=== PATIENT | male | born 1960 | race Caucasian/White ===

== ENCOUNTER 2018-06-13 10:06 | Inpatient (IN) | payer MEDICAID, OTHER ==
[~2018-06-13] VITALS: Ht 167.6 cm; Wt 93.5 kg
[~2018-06-13 10:06] MED LIST: AMLO10TA80 PO; ASPI-1159 PO; COR3 PO; DOXA8TAB81 PO; FURO40TA5 PO; LISI-604 PO; SPIR25TA6 PO
[2018-06-13 15:55] LABS: BASOPHILS % 0.7 % (0.0-2.0); EOSINOPHILS % 1.8 % (0.0-5.0); HEMATOCRIT. 46.1 % (42.0-52.0); HEMOGLOBIN. 14.8 g/dL (14.0-18.0); LYMPHOCYTES % 12.6 % (20.0-50.0); MEAN CORPUSCULAR HEMOGLOBIN 26.7 pg (28.0-32.0); MEAN CORPUSCULAR VOLUME 82.9 fL (80.0-94.0); MEAN PLATELET VOLUME 8.8 fl (7.4-10.4); MONOCYTES % 11.1 % (2.0-8.0); NEUTROPHILS % 73.8 % (40.0-76.0); PLATELET 276 x1000/uL (130-400); RED BLOOD CELL COUNT 5.56 mill/uL (4.7-6.1); RED CELL DISTRIBUTION WIDTH 16.5 % (11.6-14.6)
[2018-06-13 16:00] LABS: CHLORIDE 103 mEq/L (98-107)
[2018-06-13] MEDS ORDERED: DILTIAZEM HCL 125 MG in DEXT 5% WATER 100 ML IV ONE (16:00)
[2018-06-13] MEDS ORDERED: DILTIAZEM HCL 5MG/ML 5ML VIAL IV ONE (16:00)
[2018-06-13] MEDS ORDERED: DILTIAZEM HCL 125 MG in DEXT 5% WATER 100 ML IV SCH (16:15)
[2018-06-13] MEDS ORDERED: SODIUM CHLORIDE 0.9% 500 ML IV ONE (16:30)
[2018-06-13] MEDS ORDERED: ACETAMINOPHEN 325MG TABLET PO PRN (17:30)
[2018-06-13] MEDS ORDERED: ONDANSETRON HCL 4MG/2ML INJ IV PRN (17:30)
[2018-06-13] MEDS ORDERED: GUAIFENESIN 200MG/10ML SUGAR FREE UDC PO PRN (17:30)
[2018-06-13] MEDS ORDERED: MAGNESIUM/ALUMINUM HYDROXIDE/SIMETHICONE 30ML UDC PO PRN (17:30)
[2018-06-13] MEDS ORDERED: LORAZEPAM 0.5MG TABLET PO PRN (17:30)
[2018-06-13] MEDS ORDERED: IPRATROPIUM/ALBUTEROL 0.5-3(2.5)MG/3ML NEB INH PRN (17:30)
[2018-06-13] MEDS ORDERED: ENOXAPARIN 40MG/0.4ML SYR SUBCUT SCH (17:30)
[2018-06-13] MEDS ORDERED: DOCUSATE SODIUM 100MG CAPSULE PO PRN (17:30)
[2018-06-13] MEDS ORDERED: NITROGLYCERIN 0.4MG TABLET SL SL PRN (17:30)
[2018-06-13 18:01] LABS: INR 1.3; PARTIAL THROMBOPLASTIN TIME 29.2 sec (23.4-31.0); PROTHROMBIN TIME 12.6 sec (9.1-11.1)
[2018-06-13] MEDS ORDERED: KETOROLAC 15MG/ML VIAL IV PRN (18:30)
[2018-06-13] MEDS: CLONIDINE 0.1MG TABLET PO PRN (18:42)
[2018-06-13 18:43] LABS: *AMPHETAMINES SCREEN URINE NEGATIVE (NEGATIVE); *BARBITURATES SCREEN URINE NEGATIVE (NEGATIVE); *BENZODIAZEPINES SCREEN URINE NEGATIVE (NEGATIVE); *COCAINE SCREEN URINE NEGATIVE (NEGATIVE); CANNABINOID URINE SCREEN NEGATIVE (NEGATIVE); METHADONE URINE SCREEN NEGATIVE (NEGATIVE); OPIATES URINE SCREEN NEGATIVE (NEGATIVE)
[2018-06-13 18:44] LABS: PHENCYCLIDINE URINE SCREEN NEGATIVE (NEGATIVE)
[2018-06-13] MEDS ORDERED: ZOLPIDEM TARTRATE 5MG TABLET PO PRN (21:00)
[2018-06-13 23:51] LABS: CREATINE KINASE MB FRACTION 2.8 ng/mL (0.5-3.6)
[2018-06-14] VITALS (7 sets, daily range): BP systolic 108–165; BP diastolic 67–100
[2018-06-14] MEDS: DILTIAZEM HCL 60MG TABLET PO SCH ×2 (05:32→11:32)
[2018-06-14] MEDS: CLONIDINE 0.1MG TABLET PO PRN (06:25)
[2018-06-14] MEDS ORDERED: IRBE150T27 PO (07:10)
[2018-06-14] MEDS ORDERED: ASPIRIN 325MG EC TABLET PO SCH (09:00)
[2018-06-14] MEDS ORDERED: LISINOPRIL 20MG TABLET PO SCH (09:00)
[2018-06-14] MEDS ORDERED: METOPROLOL TARTRATE 25MG TABLET PO SCH (09:00)
[2018-06-14] MEDS ORDERED: FAMOTIDINE 20MG TABLET PO SCH (09:00)
[2018-06-14 09:41] LABS: CHLORIDE 106 mEq/L (98-107)
[2018-06-14 09:51] LABS: CREATINE KINASE 102 IU/L (39-308)
[2018-06-14] MEDS: ENOXAPARIN 100MG/ML SYR SUBCUT SCH ×2 (11:33)
[2018-06-14] MEDS ORDERED: INFLUENZA VIRUS VACCINE(AFLURIA) 0.5ML SYR IM ONE (12:00)
[2018-06-14] MEDS ORDERED: PNEUMOCOCCAL 23-VAL P-SAC VAC 0.5 ML IM ONE (12:00)
== END 2018-06-14 14:53 | disposition home or self-care (01) | DRG 201 ==
LOC: ER 10:06 → 3WST 16:56 → EDBEDREQ 17:00 → ENRESERV 06-14 03:22
PROVIDERS: ADMIT Internal Medicine; ATTEND Internal Medicine
DX: I48.91 Unspecified atrial fibrillation (principal); N17.0 Acute kidney failure with tubular necrosis; I50.9 Heart failure, unspecified; I11.0 Hypertensive heart disease with heart failure; E83.51 Hypocalcemia; I42.9 Cardiomyopathy, unspecified; Z79.82 Long term (current) use of aspirin; Z79.899 Other long term (current) drug therapy
CPT/HCPCS: 36415; 71045; 80061; 80305; 82550; 82553; 83036; 83880; 84484; 90686; 90732; 93005; 93970; 96374; 99285; J1650; J3490; J7060

== ENCOUNTER 2018-07-06 18:37 | Inpatient (IN) | payer OTHER ==
[~2018-07-06] VITALS: Ht 170.2 cm; Wt 91.6 kg
[~2018-07-06 18:37] MED LIST changes: +IRBE150T27 PO
[2018-07-06] MEDS ORDERED: SODIUM CHLORIDE 0.9% 1,000 ML IV ONE (19:37)
[2018-07-06] MEDS ORDERED: MORPHINE SULFATE 4 MG/ML CPJ (NOT FOR IM USE) IV STA (19:37)
[2018-07-06] MEDS ORDERED: ONDANSETRON HCL 4MG/2ML INJ IV STA (19:37)
[2018-07-06] MEDS ORDERED: HYDRALAZINE 20MG/ML VIAL IV ONE (19:45)
[2018-07-06] MEDS ORDERED: DILTIAZEM HCL 5MG/ML 5ML VIAL IV ONE ×2 (20:00→21:45)
[2018-07-06 20:22] LABS: HEMATOCRIT. 43.5 % (42.0-52.0); HEMOGLOBIN. 14.1 g/dL (14.0-18.0); MEAN CORPUSCULAR HEMOGLOBIN 26.1 pg (28.0-32.0); MEAN CORPUSCULAR VOLUME 80.5 fL (80.0-94.0); MEAN PLATELET VOLUME 8.7 fl (7.4-10.4); PLATELET 424 x1000/uL (130-400); RED BLOOD CELL COUNT 5.41 mill/uL (4.7-6.1); RED CELL DISTRIBUTION WIDTH 16.8 % (11.6-14.6)
[2018-07-06 20:29] LABS: INR 1.4; PROTHROMBIN TIME 14.3 sec (9.1-11.1)
[2018-07-06 20:30] LABS: CLARITY URINE CLEAR (CLEAR); COLOR URINE DARK YELLOW (YELLOW); KETONES URINE 1+ (NEGATIVE); LEUKOCYTE ESTERASE URINE TRACE (NEGATIVE); NITRITE URINE NEGATIVE (NEGATIVE); OCCULT BLOOD URINE NEGATIVE (NEGATIVE); PH URINE 5.5 (4.5-8.0); PROTEIN URINE 2+ (NEGATIVE)
[2018-07-06 20:30] LABS: CHLORIDE 96 mEq/L (98-107)
[2018-07-06] MEDS ORDERED: DILTIAZEM HCL 60MG TABLET PO ONE (20:30)
[2018-07-06 20:51] LABS: PLATELET ESTIMATE SLIGHTLY INCREASED
[2018-07-06] MEDS ORDERED: POTASSIUM CHLORIDE 20MEQ TABLET SR PO ONE (21:00)
[2018-07-06] MEDS ORDERED: ENOXAPARIN 80MG/0.8ML SYR SUBCUT ONE (22:00)
[2018-07-06] MEDS ORDERED: SODIUM CHLORIDE 0.9% 1000ML BAG (SEPSIS BOLUS) IV ONE (22:00)
[2018-07-06] MEDS ORDERED: LEVOFLOXACIN 750MG PREMIX 150 ML IV ONE (22:00)
[2018-07-06] MEDS ORDERED: ASPIRIN 325MG EC TABLET PO ONE (22:00)
[2018-07-06] MEDS ORDERED: DILTIAZEM HCL 5MG/ML 5ML VIAL IV NR (23:30)
[2018-07-07] VITALS (71 sets, daily range): BP systolic 55–188; BP diastolic 18–115
[2018-07-07] MEDS: DILTIAZEM HCL 125MG in DEXTROSE 5% WATER 125ML IV PRN ×3 (00:13→19:02)
[2018-07-07] MEDS ORDERED: DILTIAZEM HCL 30MG TABLET PO PRN (06:00)
[2018-07-07] MEDS ORDERED: CLONIDINE 0.1MG TABLET PO PRN (06:00)
[2018-07-07] MEDS ORDERED: HYDROCODONE/ACETAMINOPHEN 5/325MG TABLET PO PRN (06:00)
[2018-07-07] MEDS ORDERED: ONDANSETRON HCL 4MG/2ML INJ IV PRN (06:00)
[2018-07-07] MEDS ORDERED: GUAIFENESIN 200MG/10ML SUGAR FREE UDC PO PRN (06:00)
[2018-07-07] MEDS ORDERED: ACETAMINOPHEN 325MG TABLET PO PRN (06:00)
[2018-07-07] MEDS ORDERED: DOCUSATE SODIUM 100MG CAPSULE PO PRN (06:00)
[2018-07-07] MEDS ORDERED: MAGNESIUM/ALUMINUM HYDROXIDE/SIMETHICONE 30ML UDC PO PRN (06:00)
[2018-07-07 07:48] LABS: CREATINE KINASE MB FRACTION 2.1 ng/mL (0.5-3.6)
[2018-07-07] MEDS ORDERED: METOPROLOL TARTRATE 25MG TABLET PO SCH (09:00)
[2018-07-07] MEDS ORDERED: DIGOXIN 500MCG/2ML AMP IV NR (11:45)
[2018-07-07] MEDS ORDERED: DILTIAZEM HCL 30MG TABLET PO SCH (12:00)
[2018-07-07 12:18] LABS: HEMATOCRIT. 41.3 % (42.0-52.0); MEAN CORPUSCULAR HEMOGLOBIN 25.9 pg (28.0-32.0); MEAN CORPUSCULAR VOLUME 82.3 fL (80.0-94.0); PLATELET 398 x1000/uL (130-400); RED BLOOD CELL COUNT 5.02 mill/uL (4.7-6.1); RED CELL DISTRIBUTION WIDTH 17.2 % (11.6-14.6)
[2018-07-07 12:21] LABS: CHLORIDE 102 mEq/L (98-107)
[2018-07-07] MEDS: POTASSIUM CHLORIDE 20MEQ TABLET SR PO SCH (12:27)
[2018-07-07] MEDS: FUROSEMIDE 40MG TABLET PO SCH (12:28)
[2018-07-07] MEDS: DILTIAZEM HCL 60MG TABLET PO SCH ×3 (12:28→23:51)
[2018-07-07] MEDS: ENOXAPARIN 100MG/ML SYR SUBCUT SCH (12:29)
[2018-07-07 13:59] LABS: PLATELET ESTIMATE NORMAL
[2018-07-07 15:06] LABS: *AMPHETAMINES SCREEN URINE NEGATIVE (NEGATIVE); *BARBITURATES SCREEN URINE NEGATIVE (NEGATIVE); *BENZODIAZEPINES SCREEN URINE NEGATIVE (NEGATIVE); *COCAINE SCREEN URINE NEGATIVE (NEGATIVE); METHADONE URINE SCREEN NEGATIVE (NEGATIVE); OPIATES URINE SCREEN PRESUMTIVE POSITIVE (NEGATIVE)
[2018-07-07 15:08] LABS: CANNABINOID URINE SCREEN NEGATIVE (NEGATIVE); PHENCYCLIDINE URINE SCREEN NEGATIVE (NEGATIVE)
[2018-07-07] MEDS ORDERED: DIGOXIN 500MCG/2ML AMP IV PRN (16:00)
[2018-07-07 16:31] LABS: CREATINE KINASE MB FRACTION 1.7 ng/mL (0.5-3.6)
[2018-07-07] MEDS: CARVEDILOL 3.125 MG TABLET PO SCH (20:48)
[2018-07-07] MEDS ORDERED: ENOXAPARIN 40MG/0.4ML SYR SUBCUT SCH (22:00)
[2018-07-07] MEDS ORDERED: LEVOFLOXACIN 500MG PREMIX 100 ML IV SCH (22:30)
[2018-07-08] VITALS (62 sets, daily range): BP systolic 111–162; BP diastolic 66–134
[2018-07-08] MEDS: ENOXAPARIN 100MG/ML SYR SUBCUT SCH ×2 (00:38→13:11)
[2018-07-08 06:17] LABS: HEMATOCRIT. 43.4 % (42.0-52.0); HEMOGLOBIN. 13.8 g/dL (14.0-18.0); MEAN CORPUSCULAR HEMOGLOBIN 25.7 pg (28.0-32.0); MEAN CORPUSCULAR VOLUME 81.1 fL (80.0-94.0); MEAN PLATELET VOLUME 8.8 fl (7.4-10.4); PLATELET 457 x1000/uL (130-400); RED BLOOD CELL COUNT 5.36 mill/uL (4.7-6.1); RED CELL DISTRIBUTION WIDTH 16.8 % (11.6-14.6)
[2018-07-08 06:38] LABS: CHLORIDE 99 mEq/L (98-107)
[2018-07-08] MEDS: DILTIAZEM HCL 60MG TABLET PO SCH (06:41)
[2018-07-08 07:04] LABS: LDL CHOLESTEROL 78 mg/dL (5-100)
[2018-07-08 07:06] LABS: CREATINE KINASE MB FRACTION < 1.0 ng/mL (0.5-3.6)
[2018-07-08 07:07] LABS: HDL CHOLESTEROL 33 mg/dL (40-59); T4 FREE 1.39 ng/dL (0.76-1.46)
[2018-07-08] MEDS: DILTIAZEM HCL 125MG in DEXTROSE 5% WATER 125ML IV PRN (07:07)
[2018-07-08] MEDS: SPIRONOLACTONE 25MG TABLET PO SCH (08:24)
[2018-07-08] MEDS: POTASSIUM CHLORIDE 20MEQ TABLET SR PO SCH (08:25)
[2018-07-08] MEDS: CARVEDILOL 3.125 MG TABLET PO SCH ×2 (08:25→21:25)
[2018-07-08] MEDS: FUROSEMIDE 40MG TABLET PO SCH (08:25)
[2018-07-08 09:56] LABS: PLATELET ESTIMATE INCREASED
[2018-07-08] MEDS ORDERED: POTASSIUM CHLORIDE 20MEQ/PACKET PO NR (12:45)
[2018-07-08] MEDS ORDERED: MAGNESIUM 1 G PREMIX 100 ML IV SCH (13:00)
[2018-07-08] MEDS ORDERED: POTASSIUM CHLORIDE 20MEQ TABLET SR PO NR (13:00)
[2018-07-08] MEDS: DILTIAZEM HCL 90MG TABLET PO SCH ×2 (13:11→18:31)
[2018-07-08] MEDS: LOSARTAN POTASSIUM 25 MG TABLET PO SCH (13:11)
[2018-07-08] MEDS: FLUTICASONE PROPIONATE 50MCG/SPRAY BOTTLE BOTHNSTRLS SCH ×2 (15:16→21:25)
[2018-07-08] MEDS: LEVOFLOXACIN 750MG PREMIX 150 ML IV SCH (18:32)
[2018-07-09] VITALS (30 sets, daily range): BP systolic 110–154; BP diastolic 52–102
[2018-07-09] MEDS: DILTIAZEM HCL 90MG TABLET PO SCH ×5 (00:04→23:46)
[2018-07-09] MEDS: ENOXAPARIN 100MG/ML SYR SUBCUT SCH ×3 (00:05→23:47)
[2018-07-09 06:34] LABS: HEMATOCRIT. 41.8 % (42.0-52.0); HEMOGLOBIN. 13.6 g/dL (14.0-18.0); MEAN CORPUSCULAR HEMOGLOBIN 26.1 pg (28.0-32.0); MEAN CORPUSCULAR VOLUME 80.5 fL (80.0-94.0); MEAN PLATELET VOLUME 8.6 fl (7.4-10.4); PLATELET 459 x1000/uL (130-400); RED BLOOD CELL COUNT 5.19 mill/uL (4.7-6.1); RED CELL DISTRIBUTION WIDTH 17.4 % (11.6-14.6)
[2018-07-09 06:41] LABS: CHLORIDE 101 mEq/L (98-107)
[2018-07-09] MEDS: LOSARTAN POTASSIUM 25 MG TABLET PO SCH ×2 (08:02→20:56)
[2018-07-09] MEDS: POTASSIUM CHLORIDE 20MEQ TABLET SR PO SCH (08:02)
[2018-07-09] MEDS: CARVEDILOL 3.125 MG TABLET PO SCH ×2 (08:02→20:56)
[2018-07-09] MEDS: FUROSEMIDE 40MG TABLET PO SCH (08:02)
[2018-07-09] MEDS: FLUTICASONE PROPIONATE 50MCG/SPRAY BOTTLE BOTHNSTRLS SCH ×2 (08:02→20:56)
[2018-07-09] MEDS: SPIRONOLACTONE 25MG TABLET PO SCH (08:02)
[2018-07-09 08:07] LABS: PLATELET ESTIMATE INCREASED
[2018-07-09] MEDS: LEVOFLOXACIN 750MG PREMIX 150 ML IV SCH (17:06)
[2018-07-10] VITALS (24 sets, daily range): BP systolic 116–161; BP diastolic 55–101
[2018-07-10 05:49] LABS: HEMOGLOBIN. 13.5 g/dL (14.0-18.0); MEAN CORPUSCULAR HEMOGLOBIN 25.8 pg (28.0-32.0); MEAN CORPUSCULAR VOLUME 80.4 fL (80.0-94.0); MEAN PLATELET VOLUME 8.3 fl (7.4-10.4); PLATELET 478 x1000/uL (130-400); RED BLOOD CELL COUNT 5.22 mill/uL (4.7-6.1); RED CELL DISTRIBUTION WIDTH 17.5 % (11.6-14.6)
[2018-07-10 05:55] LABS: CHLORIDE 101 mEq/L (98-107)
[2018-07-10] MEDS: DILTIAZEM HCL 90MG TABLET PO SCH ×2 (06:05→11:25)
[2018-07-10 07:24] LABS: PLATELET ESTIMATE INCREASED
[2018-07-10] MEDS: FUROSEMIDE 40MG TABLET PO SCH (08:12)
[2018-07-10] MEDS: FLUTICASONE PROPIONATE 50MCG/SPRAY BOTTLE BOTHNSTRLS SCH (08:12)
[2018-07-10] MEDS: CARVEDILOL 3.125 MG TABLET PO SCH (08:12)
[2018-07-10] MEDS: POTASSIUM CHLORIDE 20MEQ TABLET SR PO SCH (08:12)
[2018-07-10] MEDS: LOSARTAN POTASSIUM 25 MG TABLET PO SCH (08:12)
[2018-07-10] MEDS: SPIRONOLACTONE 25MG TABLET PO SCH (08:13)
[2018-07-10] MEDS ORDERED: RIVAROXABAN 15 MG TABLET PO SCH (12:00)
[2018-07-31] MEDS ORDERED: RIVAROXABAN 20 MG TABLET PO SCH (18:20)
== END 2018-07-10 16:55 | disposition home or self-care (01) | DRG 139 ==
LOC: ER 18:55 → CVICU 21:29 → EDBEDREQSVC 23:36 → EDBEDREQTM 23:36 → ENRESERV 07-07 04:01 → SUPCPDRO 07-07 05:48
PROVIDERS: ADMIT Hospitalist; ATTEND Hospitalist
DX: J18.9 Pneumonia, unspecified organism (principal); I42.9 Cardiomyopathy, unspecified; E87.8 Other disorders of electrolyte and fluid balance, not elsewhere classified; I82.411 Acute embolism and thrombosis of right femoral vein; E87.1 Hypo-osmolality and hyponatremia; E83.51 Hypocalcemia; I11.0 Hypertensive heart disease with heart failure; I50.9 Heart failure, unspecified; I48.91 Unspecified atrial fibrillation; I82.431 Acute embolism and thrombosis of right popliteal vein; N40.0 Benign prostatic hyperplasia without lower urinary tract symptoms; E03.9 Hypothyroidism, unspecified; E78.00 Pure hypercholesterolemia, unspecified; E87.6 Hypokalemia; R10.9 Unspecified abdominal pain
CPT/HCPCS: 36415; 71045; 74176; 78580; 80048; 80061; 80305; 82550; 82553; 83605; 83735; 83880; 84439; 84443; 84484; 85379; 93005; 93306; 93970; 96361; 96374; 96375; 99291; J1160; J1650; J1956; J2270; J2405; J3475; J3490; J7030; J7040; J7050; J7060

== ENCOUNTER 2018-08-11 16:44 | Inpatient (IN) | payer OTHER ==
[~2018-08-11] VITALS: Ht 167.6 cm; Wt 83.9 kg
[~2018-08-11 16:44] MED LIST changes: -AMLO10TA80 PO; -ASPI-1159 PO; -DOXA8TAB81 PO; -IRBE150T27 PO; -LISI-604 PO
[2018-08-11 17:51] LABS: BASOPHILS % 0.7 % (0.0-2.0); EOSINOPHILS % 5.1 % (0.0-5.0); HEMATOCRIT. 47.3 % (42.0-52.0); HEMOGLOBIN. 15.5 g/dL (14.0-18.0); LYMPHOCYTES % 17.4 % (20.0-50.0); MEAN CORPUSCULAR HEMOGLOBIN 26.1 pg (28.0-32.0); MEAN CORPUSCULAR VOLUME 79.7 fL (80.0-94.0); MEAN PLATELET VOLUME 8.7 fl (7.4-10.4); MONOCYTES % 11.5 % (2.0-8.0); NEUTROPHILS % 65.3 % (40.0-76.0); PLATELET 284 x1000/uL (130-400); RED BLOOD CELL COUNT 5.94 mill/uL (4.7-6.1); RED CELL DISTRIBUTION WIDTH 19.3 % (11.6-14.6)
[2018-08-11] MEDS ORDERED: DILTIAZEM HCL 5MG/ML 5ML VIAL IV ONE ×2 (18:00→18:45)
[2018-08-11 18:01] LABS: CHLORIDE 103 mEq/L (98-107)
[2018-08-11 18:06] LABS: ETHANOL BLOOD < 10 mg/dL
[2018-08-11 18:39] LABS: INR 1.2; PARTIAL THROMBOPLASTIN TIME 27.3 sec (23.4-31.0); PROTHROMBIN TIME 12.4 sec (9.6-11.0)
[2018-08-11 18:44] LABS: T4 FREE 1.06 ng/dL (0.76-1.46)
[2018-08-11] MEDS ORDERED: ENOXAPARIN 80MG/0.8ML SYR SUBCUT ONE (18:45)
[2018-08-11] MEDS ORDERED: DILTIAZEM HCL 125 MG in DEXT 5% WATER 100 ML IV ONE ×2 (19:45→20:01)
[2018-08-12] VITALS (58 sets, daily range): BP systolic 88–183; BP diastolic 31–129
[2018-08-12] MEDS ORDERED: DILTIAZEM HCL 125 MG in DEXT 5% WATER 100 ML IV SCH ×2 (02:00→02:15)
[2018-08-12] MEDS ORDERED: ACETAMINOPHEN 325MG TABLET PO PRN ×2 (02:45→08:15)
[2018-08-12] MEDS ORDERED: HYDROCODONE/ACETAMINOPHEN 5/325MG TABLET PO PRN (02:45)
[2018-08-12 06:04] LABS: BASOPHILS % 1.2 % (0.0-2.0); EOSINOPHILS % 4.8 % (0.0-5.0); HEMATOCRIT. 46.6 % (42.0-52.0); HEMOGLOBIN. 15.1 g/dL (14.0-18.0); LYMPHOCYTES % 19.6 % (20.0-50.0); MEAN CORPUSCULAR VOLUME 80.2 fL (80.0-94.0); MEAN PLATELET VOLUME 8.6 fl (7.4-10.4); MONOCYTES % 12.7 % (2.0-8.0); NEUTROPHILS % 61.7 % (40.0-76.0); PLATELET 279 x1000/uL (130-400); RED BLOOD CELL COUNT 5.81 mill/uL (4.7-6.1); RED CELL DISTRIBUTION WIDTH 19.5 % (11.6-14.6)
[2018-08-12 06:29] LABS: CHLORIDE 104 mEq/L (98-107)
[2018-08-12] MEDS ORDERED: ONDANSETRON HCL 4MG/2ML INJ IV PRN (08:15)
[2018-08-12] MEDS ORDERED: APIXABAN 5 MG TABLET PO SCH ×2 (09:00)
[2018-08-12] MEDS: LISINOPRIL 5MG TABLET PO SCH (09:06)
[2018-08-12] MEDS: FUROSEMIDE 40MG/4ML VIAL IVP SCH ×2 (09:06→20:12)
[2018-08-12] MEDS: CARVEDILOL 3.125 MG TABLET PO SCH ×2 (09:06→20:12)
[2018-08-12] MEDS: APIXABAN 5 MG TABLET PO SCH ×2 (09:07→17:00)
[2018-08-12] MEDS: ASPIRIN 325MG EC TABLET PO SCH (09:07)
[2018-08-12] MEDS: DILTIAZEM HCL 125 MG in DEXT 5% WATER 100 ML IV SCH ×2 (09:46→21:47)
[2018-08-12] MEDS ORDERED: SPIR25TA6 MT (21:10)
[2018-08-12] MEDS ORDERED: RIVA20TA MT (21:10)
[2018-08-12] MEDS ORDERED: LOSA25TA12 MT (21:10)
[2018-08-12] MEDS ORDERED: COR6 MT (21:10)
[2018-08-13] VITALS (72 sets, daily range): BP systolic 84–155; BP diastolic 43–109
[2018-08-13 06:01] LABS: EOSINOPHILS % 5.4 % (0.0-5.0); HEMATOCRIT. 46.5 % (42.0-52.0); LYMPHOCYTES % 16.7 % (20.0-50.0); MEAN CORPUSCULAR HEMOGLOBIN 26.1 pg (28.0-32.0); MEAN CORPUSCULAR VOLUME 80.7 fL (80.0-94.0); MEAN PLATELET VOLUME 8.4 fl (7.4-10.4); MONOCYTES % 13.2 % (2.0-8.0); NEUTROPHILS % 63.7 % (40.0-76.0); PLATELET 271 x1000/uL (130-400); RED BLOOD CELL COUNT 5.76 mill/uL (4.7-6.1); RED CELL DISTRIBUTION WIDTH 19.4 % (11.6-14.6)
[2018-08-13] MEDS ORDERED: DILTIAZEM HCL 125 MG in DEXT 5% WATER 100 ML IV SCH (07:24)
[2018-08-13] MEDS: LISINOPRIL 5MG TABLET PO SCH (08:20)
[2018-08-13] MEDS: FUROSEMIDE 40MG/4ML VIAL IVP SCH ×2 (08:21→21:17)
[2018-08-13] MEDS: APIXABAN 5 MG TABLET PO SCH ×2 (08:21→08:55)
[2018-08-13] MEDS: CARVEDILOL 6.25 MG TABLET PO SCH ×2 (08:21→21:17)
[2018-08-13] MEDS: ASPIRIN 325MG EC TABLET PO SCH (08:21)
[2018-08-13] MEDS ORDERED: ENOXAPARIN 60MG/0.6ML SYR SUBCUT NR (14:00)
[2018-08-13] MEDS: DILTIAZEM HCL 60MG TABLET PO SCH ×2 (14:00→21:18)
[2018-08-14] VITALS (29 sets, daily range): BP systolic 108–197; BP diastolic 52–152
[2018-08-14 05:51] LABS: BASOPHILS % 0.9 % (0.0-2.0); EOSINOPHILS % 7.6 % (0.0-5.0); HEMATOCRIT. 50.3 % (42.0-52.0); HEMOGLOBIN. 16.3 g/dL (14.0-18.0); LYMPHOCYTES % 16.2 % (20.0-50.0); MEAN CORPUSCULAR VOLUME 80.5 fL (80.0-94.0); MEAN PLATELET VOLUME 8.7 fl (7.4-10.4); MONOCYTES % 12.1 % (2.0-8.0); NEUTROPHILS % 63.2 % (40.0-76.0); PLATELET 287 x1000/uL (130-400); RED BLOOD CELL COUNT 6.25 mill/uL (4.7-6.1); RED CELL DISTRIBUTION WIDTH 20.1 % (11.6-14.6)
[2018-08-14] MEDS: DILTIAZEM HCL 60MG TABLET PO SCH ×3 (06:08→21:00)
[2018-08-14] MEDS: FUROSEMIDE 40MG/4ML VIAL IVP SCH ×2 (07:38→20:58)
[2018-08-14] MEDS: ASPIRIN 325MG EC TABLET PO SCH (07:38)
[2018-08-14] MEDS: CARVEDILOL 6.25 MG TABLET PO SCH ×2 (07:39→20:57)
[2018-08-14] MEDS ORDERED: MIDAZOLAM HCL 2 MG/2 ML VIAL ONE (09:44)
[2018-08-14] MEDS ORDERED: LIDOCAINE HCL 1% 20ML VIAL (Pyxis) INJ ONE (09:45)
[2018-08-14] MEDS ORDERED: IODIXANOL 320MG/ML 100 ML BOTTLE IV ONE (09:45)
[2018-08-14] MEDS ORDERED: FENTANYL CITRATE/PF 50MCG/ML 2ML VIAL ONE (09:45)
[2018-08-14] MEDS ORDERED: ONDANSETRON HCL 4MG/2ML INJ IV PRN (11:15)
[2018-08-14] MEDS ORDERED: ATROPINE SULFATE 1MG/10ML SYR IV PRN (11:15)
[2018-08-14] MEDS ORDERED: ACETAMINOPHEN 325MG TABLET PO PRN (11:15)
[2018-08-14] MEDS: LISINOPRIL 5MG TABLET PO SCH (12:33)
[2018-08-15] VITALS (12 sets, daily range): BP systolic 103–123; BP diastolic 18–89
[2018-08-15] MEDS: DILTIAZEM HCL 60MG TABLET PO SCH (05:11)
[2018-08-15 06:27] LABS: BASOPHILS % 0.8 % (0.0-2.0); EOSINOPHILS % 6.6 % (0.0-5.0); HEMATOCRIT. 50.7 % (42.0-52.0); HEMOGLOBIN. 16.4 g/dL (14.0-18.0); LYMPHOCYTES % 19.4 % (20.0-50.0); MEAN CORPUSCULAR HEMOGLOBIN 26.1 pg (28.0-32.0); MEAN PLATELET VOLUME 8.7 fl (7.4-10.4); MONOCYTES % 12.1 % (2.0-8.0); NEUTROPHILS % 61.1 % (40.0-76.0); PLATELET 287 x1000/uL (130-400); RED BLOOD CELL COUNT 6.26 mill/uL (4.7-6.1); RED CELL DISTRIBUTION WIDTH 19.9 % (11.6-14.6)
[2018-08-15] MEDS: ASPIRIN 325MG EC TABLET PO SCH (08:07)
[2018-08-15] MEDS: CARVEDILOL 6.25 MG TABLET PO SCH (08:08)
[2018-08-15] MEDS: LISINOPRIL 5MG TABLET PO SCH (08:09)
[2018-08-15] MEDS: FUROSEMIDE 40MG/4ML VIAL IVP SCH ×2 (08:09→20:50)
[2018-08-15] MEDS ORDERED: DIGOXIN 500MCG/2ML AMP IV ONE (11:45)
[2018-08-15] MEDS: DILTIAZEM HCL 90MG TABLET PO SCH ×2 (13:57→22:32)
[2018-08-15] MEDS ORDERED: DIGOXIN 500MCG/2ML AMP IV SCH ×2 (14:00→18:00)
[2018-08-15] MEDS: CARVEDILOL 12.5MG TABLET PO SCH (20:50)
[2018-08-16] VITALS (8 sets, daily range): BP systolic 101–115; BP diastolic 50–79
[2018-08-16 06:24] LABS: BASOPHILS % 0.6 % (0.0-2.0); EOSINOPHILS % 4.2 % (0.0-5.0); HEMATOCRIT. 48.2 % (42.0-52.0); HEMOGLOBIN. 15.9 g/dL (14.0-18.0); LYMPHOCYTES % 11.5 % (20.0-50.0); MEAN CORPUSCULAR HEMOGLOBIN 26.5 pg (28.0-32.0); MEAN CORPUSCULAR VOLUME 80.5 fL (80.0-94.0); MEAN PLATELET VOLUME 8.9 fl (7.4-10.4); MONOCYTES % 10.1 % (2.0-8.0); NEUTROPHILS % 73.6 % (40.0-76.0); PLATELET 261 x1000/uL (130-400); RED BLOOD CELL COUNT 5.99 mill/uL (4.7-6.1); RED CELL DISTRIBUTION WIDTH 19.5 % (11.6-14.6)
[2018-08-16] MEDS: DILTIAZEM HCL 90MG TABLET PO SCH ×2 (06:44→14:53)
[2018-08-16 06:46] LABS: CHLORIDE 98 mEq/L (98-107)
[2018-08-16] MEDS: FUROSEMIDE 40MG/4ML VIAL IVP SCH (08:41)
[2018-08-16] MEDS: LISINOPRIL 5MG TABLET PO SCH (08:42)
[2018-08-16] MEDS: ASPIRIN 325MG EC TABLET PO SCH (08:42)
[2018-08-16] MEDS: CARVEDILOL 12.5MG TABLET PO SCH (08:42)
[2018-08-16] MEDS ORDERED: DIGOXIN 125MCG TABLET PO SCH (18:00)
== END 2018-08-16 14:55 | disposition home or self-care (01) | DRG 192 ==
LOC: ER 16:44 → CANRESERV 22:32 → ENRESERV 22:32 → EDBEDREQSVC 22:47 → CVICU 22:51 → ENRESERV 08-12 00:09 → 3WST 08-13 17:50
PROVIDERS: ADMIT Internal Medicine; ATTEND Internal Medicine
PROC: 4A023N8 Measurement of Cardiac Sampling and Pressure, Bilateral, Percutaneous Approach (ICD-10-PCS; principal; 2018-08-14)
PROC: B2111ZZ Fluoroscopy of Multiple Coronary Arteries using Low Osmolar Contrast (ICD-10-PCS; 2018-08-14)
PROC: B2151ZZ Fluoroscopy of Left Heart using Low Osmolar Contrast (ICD-10-PCS; 2018-08-14)
DX: I48.91 Unspecified atrial fibrillation (principal); I50.23 Acute on chronic systolic (congestive) heart failure; I42.0 Dilated cardiomyopathy; E44.1 Mild protein-calorie malnutrition; I25.10 Atherosclerotic heart disease of native coronary artery without angina pectoris; I11.0 Hypertensive heart disease with heart failure; I25.5 Ischemic cardiomyopathy; E66.9 Obesity, unspecified; E03.9 Hypothyroidism, unspecified; E78.5 Hyperlipidemia, unspecified; I25.2 Old myocardial infarction; Z79.899 Other long term (current) drug therapy; Z86.718 Personal history of other venous thrombosis and embolism; Z68.29 Body mass index [BMI] 29.0-29.9, adult; Z71.3 Dietary counseling and surveillance
CPT/HCPCS: 36415; 71045; 80048; 80320; 83735; 83880; 84439; 84443; 84484; 93005; 93306; 93460; 96372; 96374; 99291; C1760; C1769; C1887; C1893; J1160; J1644; J1650; J1940; J2250; J3010; J3490; J7060; Q9967; G0480

== ENCOUNTER 2019-02-20 10:04 | Inpatient (IN) | payer OTHER, MEDICAID ==
[~2019-02-20] VITALS: Ht 167.6 cm; Wt 88.0 kg
[~2019-02-20 10:04] MED LIST changes: -COR3 PO; +COR6 MT; +LOSA25TA26 MT; +RIVA20TA MT; +SPIR25TA6 MT; -SPIR25TA6 PO
[2019-02-20 11:52] LABS: BASOPHILS % 0.8 % (0.0-2.0); EOSINOPHILS % 4.6 % (0.0-5.0); HEMATOCRIT. 47.8 % (42.0-52.0); HEMOGLOBIN. 15.7 g/dL (14.0-18.0); LYMPHOCYTES % 9.2 % (20.0-50.0); MEAN CORPUSCULAR HEMOGLOBIN 26.8 pg (28.0-32.0); MEAN CORPUSCULAR VOLUME 81.8 fL (80.0-94.0); MEAN PLATELET VOLUME 8.8 fl (7.4-10.4); MONOCYTES % 10.2 % (2.0-8.0); NEUTROPHILS % 75.2 % (40.0-76.0); PLATELET 246 x1000/uL (130-400); RED BLOOD CELL COUNT 5.85 mill/uL (4.7-6.1); RED CELL DISTRIBUTION WIDTH 17.3 % (11.6-14.6)
[2019-02-20 11:57] LABS: CHLORIDE 100 mEq/L (98-107)
[2019-02-20] MEDS ORDERED: ACETAMINOPHEN 650MG/20.3ML UDC PO ONE (12:30)
[2019-02-20] MEDS ORDERED: ACETAMINOPHEN 325MG TABLET ONE (12:35)
[2019-02-20] MEDS ORDERED: IOHEXOL-350 100 ML BOTTLE ONE (14:09)
[2019-02-20] MEDS ORDERED: GUAIFENESIN 200MG/10ML SUGAR FREE UDC PO PRN (19:00)
[2019-02-20] MEDS ORDERED: MAGNESIUM/ALUMINUM HYDROXIDE/SIMETHICONE 30ML UDC PO PRN (19:00)
[2019-02-20] MEDS ORDERED: NA PHOS,M-B/NA PHOS,DI-BA ENEMA 118ML PR PRN (19:00)
[2019-02-20] MEDS ORDERED: ZOLPIDEM TARTRATE 5MG TABLET PO PRN (19:00)
[2019-02-20] MEDS ORDERED: LORAZEPAM 0.5MG TABLET PO PRN (19:00)
[2019-02-20] MEDS ORDERED: TRAMADOL 50MG TABLET PO PRN (19:00)
[2019-02-20] MEDS ORDERED: ACETAMINOPHEN 325MG TABLET PO PRN (19:00)
[2019-02-20] MEDS ORDERED: IPRATROPIUM/ALBUTEROL 0.5-3(2.5)MG/3ML NEB NEB PRN (19:00)
[2019-02-20] MEDS ORDERED: DOCUSATE SODIUM 100MG CAPSULE PO PRN (19:00)
[2019-02-20] MEDS ORDERED: NITROGLYCERIN 0.4MG TABLET SL SL PRN (19:00)
[2019-02-20] MEDS ORDERED: ONDANSETRON HCL 4MG/2ML INJ IV PRN (19:00)
[2019-02-20] MEDS ORDERED: CARVEDILOL 6.25 MG TABLET PO NR (19:15)
[2019-02-20] MEDS ORDERED: ASPIRIN 325MG EC TABLET PO NR (19:15)
[2019-02-20] MEDS ORDERED: DIGOXIN 125MCG TABLET PO NR (19:15)
[2019-02-20] MEDS: RIVAROXABAN 20 MG TABLET PO NR ×2 (19:57→20:00)
[2019-02-20 22:30] VITALS: BP 193/126
[2019-02-20] MEDS ORDERED: LOSARTAN POTASSIUM 50 MG TABLET PO NR (22:30)
[2019-02-20 23:00] VITALS: BP 193/126
[2019-02-20 23:30] VITALS: BP 181/134
[2019-02-20] MEDS: SPIRONOLACTONE 25MG TABLET PO SCH (23:31)
[2019-02-20] MEDS: FUROSEMIDE 20MG TABLET PO SCH (23:31)
[2019-02-20] MEDS: FAMOTIDINE 20MG TABLET PO SCH (23:32)
[2019-02-20] MEDS: CLONIDINE 0.1MG TABLET PO PRN (23:32)
[2019-02-21 00:31] LABS: CREATINE KINASE 76 IU/L (39-308)
[2019-02-21 00:32] LABS: CREATINE KINASE MB FRACTION 1.5 ng/mL (0.5-3.6)
[2019-02-21] MEDS ORDERED: DIGO125T20 PO (01:14)
[2019-02-21 02:00] VITALS: BP 166/123
[2019-02-21 04:00] VITALS: BP 151/111
[2019-02-21 05:19] LABS: CHLORIDE 103 mEq/L (98-107)
[2019-02-21 05:28] LABS: LDL CHOLESTEROL 101 mg/dL (5-100)
[2019-02-21 05:29] LABS: CREATINE KINASE 71 IU/L (39-308); CREATINE KINASE MB FRACTION 1.1 ng/mL (0.5-3.6); HDL CHOLESTEROL 33 mg/dL (40-59)
[2019-02-21] MEDS: CARVEDILOL 12.5MG TABLET PO SCH ×2 (05:31→17:33)
[2019-02-21] MEDS: CLONIDINE 0.1MG TABLET PO PRN ×2 (05:32→23:40)
[2019-02-21 08:00] VITALS: BP 166/106
[2019-02-21] MEDS ORDERED: POTASSIUM CHLORIDE 20MEQ TABLET SR PO NR (08:30)
[2019-02-21] MEDS: FUROSEMIDE 20MG TABLET PO SCH ×2 (09:28→17:33)
[2019-02-21] MEDS: SPIRONOLACTONE 25MG TABLET PO SCH ×2 (09:29→21:36)
[2019-02-21] MEDS: ASPIRIN 325MG EC TABLET PO SCH (09:30)
[2019-02-21] MEDS: FAMOTIDINE 20MG TABLET PO SCH ×2 (09:30→21:36)
[2019-02-21] MEDS: LOSARTAN POTASSIUM 100 MG TABLET PO SCH (09:30)
[2019-02-21] MEDS: AMLODIPINE 10MG TABLET PO SCH (09:30)
[2019-02-21 12:00] VITALS: BP 140/88
[2019-02-21 16:00] VITALS: BP 144/88
[2019-02-21] MEDS ORDERED: RIVAROXABAN 20 MG TABLET PO SCH (17:00)
[2019-02-21] MEDS ORDERED: DIGOXIN 125MCG TABLET PO SCH (18:00)
[2019-02-21 20:00] VITALS: BP 157/95
[2019-02-22] VITALS: BP 162/117
[2019-02-22 04:00] VITALS: BP 180/111
[2019-02-22] MEDS: CLONIDINE 0.1MG TABLET PO PRN (05:46)
[2019-02-22] MEDS: CARVEDILOL 12.5MG TABLET PO SCH (05:46)
[2019-02-22 08:00] VITALS: BP 162/114
[2019-02-22] MEDS: FUROSEMIDE 20MG TABLET PO SCH (08:33)
[2019-02-22] MEDS: FAMOTIDINE 20MG TABLET PO SCH (08:33)
[2019-02-22] MEDS: AMLODIPINE 10MG TABLET PO SCH (08:33)
[2019-02-22] MEDS: ASPIRIN 325MG EC TABLET PO SCH (08:33)
[2019-02-22] MEDS: SPIRONOLACTONE 25MG TABLET PO SCH (08:33)
[2019-02-22] MEDS: LOSARTAN POTASSIUM 100 MG TABLET PO SCH (08:33)
[2019-02-22 10:09] VITALS: BP_SYST 134; BP_SYST 162; BP_DIAS 114; BP_DIAS 77
[2019-02-22 10:44] VITALS: BP 134/77
== END 2019-02-22 11:20 | disposition home or self-care (01) | DRG 194 ==
LOC: ER 10:04 → 6WST 18:27 → EDBEDREQ 18:28 → SUPCPDRO 20:41 → ENRESERV 20:53
PROVIDERS: ADMIT Internal Medicine; ATTEND Internal Medicine
DX: I11.0 Hypertensive heart disease with heart failure (principal); I48.91 Unspecified atrial fibrillation; I50.40 Unspecified combined systolic (congestive) and diastolic (congestive) heart failure; Z79.899 Other long term (current) drug therapy
CPT/HCPCS: 36415; 70496; 70551; 71045; 80061; 82550; 82553; 83036; 83735; 83880; 84484; 93005; 93306; 93970; 99285; Q9967

== ENCOUNTER 2019-04-20 17:48 | Emergency (ER) | payer OTHER, MEDICAID ==
[~2019-04-20] VITALS: Ht 167.6 cm; Wt 89.0 kg
[~2019-04-20 17:48] MED LIST changes: +DIGO125T20 PO; -LOSA25TA26 MT; -SPIR25TA6 MT
[2019-04-20 18:22] VITALS: BP 208/158
[2019-06-12] MEDS ORDERED: BLOO1KIT74 TP (15:55)
[2019-06-12] MEDS ORDERED: APIX5TAB MT (15:55)
[2019-06-12] MEDS ORDERED: ATOR10TA MT (15:55)
[2019-06-12] MEDS ORDERED: DILT30TA38 MT (15:55)
[2019-06-12] MEDS ORDERED: COR3 MT (15:55)
[2019-06-12] MEDS ORDERED: ASPI-1497 MT (16:13)
== END 2019-04-20 23:50 | disposition left against medical advice (07) ==
LOC: ER 17:48
DX: Z53.21 Procedure and treatment not carried out due to patient leaving prior to being seen by health care provider (principal)
CPT/HCPCS: 99281

== ENCOUNTER 2019-05-06 17:19 | Emergency (ER) | payer OTHER, MEDICAID ==
[~2019-05-06] VITALS: Ht 167.6 cm; Wt 90.0 kg
[2019-05-06 22:00] LABS: BASOPHILS % 1.1 % (0.0-2.0); EOSINOPHILS % 3.9 % (0.0-5.0); HEMATOCRIT. 49.5 % (42.0-52.0); LYMPHOCYTES % 14.7 % (20.0-50.0); MEAN CORPUSCULAR HEMOGLOBIN 26.8 pg (28.0-32.0); MEAN CORPUSCULAR VOLUME 82.7 fL (80.0-94.0); MEAN PLATELET VOLUME 9.1 fl (7.4-10.4); MONOCYTES % 10.8 % (2.0-8.0); NEUTROPHILS % 69.5 % (40.0-76.0); PLATELET 272 x1000/uL (130-400); RED BLOOD CELL COUNT 5.98 mill/uL (4.7-6.1); RED CELL DISTRIBUTION WIDTH 18.3 % (11.6-14.6)
[2019-05-06 22:05] LABS: CHLORIDE 101 mEq/L (98-107)
[2019-05-06 22:09] LABS: INR 1.1; PARTIAL THROMBOPLASTIN TIME 27.8 sec (23.4-31.0); PROTHROMBIN TIME 11.6 sec (9.6-11.0)
[2019-05-06] MEDS ORDERED: FUROSEMIDE 20MG/2ML VIAL IVP ONE (23:30)
[2019-05-06] MEDS ORDERED: CEFTRIAXONE 1 G PREMIX 50 ML IV ONE (23:30)
[2019-05-07 02:06] VITALS: BP 158/92
== END 2019-05-07 02:06 | disposition home or self-care (01) ==
LOC: ER 17:44
DX: L53.8 Other specified erythematous conditions (principal); M79.89 Other specified soft tissue disorders; I11.0 Hypertensive heart disease with heart failure; I50.9 Heart failure, unspecified; I48.91 Unspecified atrial fibrillation; Z86.718 Personal history of other venous thrombosis and embolism
CPT/HCPCS: 36415; 80053; 83880; 84484; 85025; 85610; 85730; 86850; 86900; 86901; 93005; 93970; 96365; 96375; 99284; J0696; J1940; Z7610

== ENCOUNTER 2019-07-06 05:16 | Inpatient (IN) | payer OTHER, MEDICAID ==
[~2019-07-06] VITALS: Ht 167.6 cm; Wt 92.1 kg
[~2019-07-06 05:16] MED LIST changes: +APIX5TAB MT; +ASPI-1497 MT; +ATOR10TA MT; +BLOO1KIT74 TP; +COR3 MT; -COR6 MT; +DILT30TA38 MT; -RIVA20TA MT
[2019-07-06] MEDS ORDERED: ONDANSETRON HCL 4MG/2ML INJ IV STA (05:26)
[2019-07-06] MEDS ORDERED: AZITHROMYCIN 500 MG in DEXT 5% WATER 250 ML IV ONE (05:30)
[2019-07-06] MEDS ORDERED: CEFTRIAXONE 1 G PREMIX 50 ML IV ONE (05:30)
[2019-07-06 05:48] LABS: BG BASE EXCESS -1.4 mmol/L (-2.0-2.0); BG CARBOXYHEMOGLOBIN 1.2 % (0.5-1.5); BG DEOXYHEMOGLOBIN 0.3 % (0.0-5.0); BG FRACTION INSPIRED OXYGEN 100; BG HCO3 ACT 22.7 mmol/L (22.0-26.0); BG METHEMOGLOBIN 0.3 % (0.0-1.5); BG OXYGEN SATURATION 99.7 % (92.0-98.5); BG OXYHEMOGLOBIN 98.2 % (94.0-97.0); BG PCO2 36.4 mmHg (35.0-45.0); BG PH 7.412 (7.350-7.450); BG PO2 234.3 mmHg (75.0-100.0); BG SAMPLE SITE RIGHT RADIAL; BG TOTAL HEMOGLOBIN 15.5 g/dL (12.0-18.0); BG VENT MODE MASK - NRB
[2019-07-06 06:46] LABS: HEMATOCRIT. 45.7 % (42.0-52.0); MEAN CORPUSCULAR HEMOGLOBIN 26.5 pg (28.0-32.0); MEAN CORPUSCULAR VOLUME 80.8 fL (80.0-94.0); MEAN PLATELET VOLUME 9.3 fl (7.4-10.4); PLATELET 169 x1000/uL (130-400); RED BLOOD CELL COUNT 5.65 mill/uL (4.7-6.1); RED CELL DISTRIBUTION WIDTH 18.3 % (11.6-14.6)
[2019-07-06 06:49] LABS: CHLORIDE 99 mEq/L (98-107)
[2019-07-06] MEDS ORDERED: ACETAMINOPHEN 325MG TABLET PO ONE (07:15)
[2019-07-06 07:33] LABS: PLATELET ESTIMATE NORMAL
[2019-07-06] MEDS ORDERED: ACETAMINOPHEN 325MG TABLET PO PRN (11:15)
[2019-07-06] MEDS ORDERED: NA PHOS,M-B/NA PHOS,DI-BA ENEMA 118ML PR PRN (11:15)
[2019-07-06] MEDS ORDERED: LORAZEPAM 0.5MG TABLET PO PRN (11:15)
[2019-07-06] MEDS ORDERED: ACETAMINOPHEN 650MG SUPP PR PRN (11:15)
[2019-07-06] MEDS ORDERED: IPRATROPIUM/ALBUTEROL 0.5-3(2.5)MG/3ML NEB NEB PRN (11:15)
[2019-07-06] MEDS ORDERED: DOCUSATE SODIUM 100MG CAPSULE PO PRN (11:15)
[2019-07-06] MEDS ORDERED: ONDANSETRON HCL 4MG/2ML INJ IV PRN (11:15)
[2019-07-06] MEDS ORDERED: GUAIFENESIN 200MG/10ML SUGAR FREE UDC PO PRN (11:15)
[2019-07-06] MEDS ORDERED: MAGNESIUM/ALUMINUM HYDROXIDE/SIMETHICONE 30ML UDC PO PRN (11:15)
[2019-07-06] MEDS ORDERED: HYDROCODONE/ACETAMINOPHEN 5/325MG TABLET PO PRN (11:15)
[2019-07-06 12:00] VITALS: BP 155/91
[2019-07-06] MEDS ORDERED: METHYLPREDNISOLONE SOD SUCC 40 MG/ML VIAL IV SCH (12:00)
[2019-07-06] MEDS ORDERED: DILTIAZEM HCL 30MG TABLET ONE ×3 (13:15→20:44)
[2019-07-06] MEDS ORDERED: METHYLPREDNISOLONE SOD SUCC 125 MG/2 ML VIAL ONE ×2 (13:15→13:47)
[2019-07-06] MEDS ORDERED: DIGOXIN 125MCG TABLET ONE (13:16)
[2019-07-06] MEDS ORDERED: FUROSEMIDE 20MG TABLET ONE (13:16)
[2019-07-06] MEDS: DILTIAZEM HCL 30MG TABLET PO SCH ×3 (13:36→20:45)
[2019-07-06] MEDS: DIGOXIN 125MCG TABLET PO SCH (13:36)
[2019-07-06] MEDS: PANTOPRAZOLE 40MG DR TABLET PO SCH (13:41)
[2019-07-06] MEDS ORDERED: PANTOPRAZOLE 40MG DR TABLET PO ONE (13:44)
[2019-07-06 16:00] VITALS: BP 154/100
[2019-07-06] MEDS ORDERED: HYDR100T26 MT (16:54)
[2019-07-06] MEDS ORDERED: CARV25TA47 MT (16:56)
[2019-07-06] MEDS ORDERED: ALBUTEROL 6.7GM HFA INHALER INH PRN (17:00)
[2019-07-06] MEDS: ALBUTEROL 6.7GM HFA INHALER INH SCH (18:00)
[2019-07-06] MEDS ORDERED: IPRATROPIUM/ALBUTEROL 0.5-3(2.5)MG/3ML NEB NEB SCH (18:00)
[2019-07-06] MEDS ORDERED: CLONIDINE 0.1MG TABLET ONE (18:44)
[2019-07-06] MEDS ORDERED: FUROSEMIDE 40MG/4ML VIAL ONE (18:44)
[2019-07-06] MEDS: CLONIDINE 0.1MG TABLET PO PRN (18:45)
[2019-07-06] MEDS: FUROSEMIDE 40MG/4ML VIAL IVP SCH (18:46)
[2019-07-06] MEDS: APIXABAN 5 MG TABLET PO SCH (18:50)
[2019-07-06] MEDS ORDERED: ATORVASTATIN CALCIUM 10MG TABLET ONE (20:44)
[2019-07-06] MEDS: ATORVASTATIN CALCIUM 10MG TABLET PO SCH (20:45)
[2019-07-06 22:04] VITALS: BP 142/110
[2019-07-06 23:46] LABS: CLARITY URINE CLEAR (CLEAR); COLOR URINE YELLOW (YELLOW); KETONES URINE NEGATIVE (NEGATIVE); LEUKOCYTE ESTERASE URINE NEGATIVE (NEGATIVE); NITRITE URINE NEGATIVE (NEGATIVE); OCCULT BLOOD URINE NEGATIVE (NEGATIVE); PH URINE 6.5 (4.5-8.0); PROTEIN URINE NEGATIVE (NEGATIVE); SPECIFIC GRAVITY URINE 1.009 (1.005-1.030); UROBILINOGEN URINE 0.2 E.U./dL (0.2-1.0)
[2019-07-07] VITALS: BP 138/95
[2019-07-07] MEDS: ALBUTEROL 6.7GM HFA INHALER INH SCH ×4 (00:07→17:58)
[2019-07-07 04:00] VITALS: BP 130/86
[2019-07-07] MEDS ORDERED: CEFTRIAXONE 1 G PREMIX 50 ML IV SCH (06:00)
[2019-07-07] MEDS ORDERED: PANTOPRAZOLE 40MG DR TABLET PO ONE (06:16)
[2019-07-07] MEDS ORDERED: FUROSEMIDE 40MG/4ML VIAL ONE (06:17)
[2019-07-07] MEDS: PANTOPRAZOLE 40MG DR TABLET PO SCH (06:26)
[2019-07-07] MEDS: FUROSEMIDE 40MG/4ML VIAL IVP SCH ×2 (06:27→17:57)
[2019-07-07 06:54] LABS: HEMATOCRIT. 43.4 % (42.0-52.0); HEMOGLOBIN. 14.1 g/dL (14.0-18.0); MEAN CORPUSCULAR HEMOGLOBIN 26.3 pg (28.0-32.0); MEAN CORPUSCULAR VOLUME 80.9 fL (80.0-94.0); MEAN PLATELET VOLUME 8.9 fl (7.4-10.4); PLATELET 150 x1000/uL (130-400); RED BLOOD CELL COUNT 5.36 mill/uL (4.7-6.1); RED CELL DISTRIBUTION WIDTH 18.5 % (11.6-14.6)
[2019-07-07 07:10] LABS: CHLORIDE 101 mEq/L (98-107)
[2019-07-07 07:19] LABS: T4 FREE 1.35 ng/dL (0.76-1.46)
[2019-07-07 08:00] VITALS: BP 127/90
[2019-07-07] MEDS: AZITHROMYCIN 250 MG TABLET PO SCH (08:55)
[2019-07-07] MEDS: DILTIAZEM HCL 30MG TABLET PO SCH ×4 (08:56→21:09)
[2019-07-07] MEDS: ASPIRIN 81MG EC TABLET PO SCH (08:56)
[2019-07-07] MEDS ORDERED: GUAIFENESIN 200MG/10ML SUGAR FREE UDC ONE (09:09)
[2019-07-07] MEDS: APIXABAN 5 MG TABLET PO SCH ×2 (10:25→17:57)
[2019-07-07] MEDS ORDERED: APIXABAN 5 MG TABLET PO ONE (10:25)
[2019-07-07 11:19] LABS: PLATELET ESTIMATE NORMAL
[2019-07-07 12:10] VITALS: BP 132/84
[2019-07-07] MEDS ORDERED: DILTIAZEM HCL 30MG TABLET ONE (12:49)
[2019-07-07 16:00] VITALS: BP 135/95
[2019-07-07] MEDS: DIGOXIN 125MCG TABLET PO SCH (17:57)
[2019-07-07 20:00] VITALS: BP 143/96
[2019-07-07] MEDS: ATORVASTATIN CALCIUM 10MG TABLET PO SCH (20:39)
[2019-07-08] VITALS: BP 147/89
[2019-07-08] MEDS: ALBUTEROL 6.7GM HFA INHALER INH SCH ×4 (00:24→18:39)
[2019-07-08 04:00] VITALS: BP 147/111
[2019-07-08] MEDS: PANTOPRAZOLE 40MG DR TABLET PO SCH (05:38)
[2019-07-08] MEDS ORDERED: CEFTRIAXONE 1 G PREMIX 50 ML IV SCH (06:00)
[2019-07-08] MEDS: FUROSEMIDE 40MG/4ML VIAL IVP SCH ×2 (06:49→18:39)
[2019-07-08] MEDS: CLONIDINE 0.1MG TABLET PO PRN (06:50)
[2019-07-08 08:00] VITALS: BP 135/86
[2019-07-08] MEDS: ASPIRIN 81MG EC TABLET PO SCH (11:12)
[2019-07-08] MEDS: DILTIAZEM HCL 30MG TABLET PO SCH ×3 (11:13→18:38)
[2019-07-08] MEDS: APIXABAN 5 MG TABLET PO SCH ×2 (11:14→18:38)
[2019-07-08] MEDS: AZITHROMYCIN 250 MG TABLET PO SCH (11:14)
[2019-07-08 12:00] VITALS: BP 122/84
[2019-07-08 14:57] VITALS: BP_SYST 122; BP_SYST 138; BP_DIAS 84; BP_DIAS 96
[2019-07-08 16:00] VITALS: BP 138/96
[2019-07-08] MEDS: DIGOXIN 125MCG TABLET PO SCH (18:38)
== END 2019-07-08 20:50 | disposition home or self-care (01) | DRG 720 ==
LOC: ER 05:16 → EDBEDREQ 09:48 → 7EST 09:58 → EDBEDREQSVC 10:02 → EDBEDREQ 10:02 → ENRESERV 10:46
PROVIDERS: ADMIT Internal Medicine Nephrology; ATTEND Internal Medicine Nephrology
DX: A41.9 Sepsis, unspecified organism (principal); J96.01 Acute respiratory failure with hypoxia; I50.23 Acute on chronic systolic (congestive) heart failure; I82.91 Chronic embolism and thrombosis of unspecified vein; J18.9 Pneumonia, unspecified organism; I11.0 Hypertensive heart disease with heart failure; I48.91 Unspecified atrial fibrillation; I16.0 Hypertensive urgency; I25.10 Atherosclerotic heart disease of native coronary artery without angina pectoris; E87.1 Hypo-osmolality and hyponatremia; J06.9 Acute upper respiratory infection, unspecified
CPT/HCPCS: 36415; 36600; 71045; 80053; 80162; 81003; 82375; 82805; 83605; 83880; 84145; 84439; 84443; 84484; 85025; 87070; 87420; 87635; 87804; 93005; 96365; 96367; 96375; 99285; J0456; J0696; J1940; J2405; J2930; J7060; U0002

== ENCOUNTER 2020-05-30 03:57 | Emergency (ER) | payer OTHER, MEDICAID ==
[~2020-05-30] VITALS: Ht 167.6 cm; Wt 95.9 kg
[~2020-05-30 03:57] MED LIST changes: -ASPI-1497 MT; +CARV25TA47 MT; -COR3 MT; -DIGO125T20 PO; -FURO40TA5 PO
[2020-05-30 06:00] VITALS: BP 170/105
[2020-05-30 06:34] LABS: BASOPHILS % 0.9 % (0.0-2.0); EOSINOPHILS % 3.6 % (0.0-5.0); HEMATOCRIT. 43.3 % (42.0-52.0); HEMOGLOBIN. 13.7 g/dL (14.0-18.0); LYMPHOCYTES % 8.6 % (20.0-50.0); MEAN CORPUSCULAR HEMOGLOBIN 25.7 pg (28.0-32.0); MEAN CORPUSCULAR VOLUME 81.2 fL (80.0-94.0); MEAN PLATELET VOLUME 9.5 fl (7.4-10.4); MONOCYTES % 8.9 % (2.0-8.0); PLATELET 219 x1000/uL (130-400); RED BLOOD CELL COUNT 5.33 mill/uL (4.7-6.1); RED CELL DISTRIBUTION WIDTH 18.6 % (11.6-14.6)
[2020-05-30 06:41] LABS: CHLORIDE 103 mEq/L (98-107)
[2020-05-30 06:44] LABS: INR 1.2; PROTHROMBIN TIME 12.9 sec (9.6-11.0)
[2020-05-30] MEDS ORDERED: PANTOPRAZOLE SODIUM 40 MG/VIAL IV ONE (06:45)
[2020-05-30] MEDS ORDERED: DOXY100T2 MT (07:00)
== END 2020-05-30 08:10 | disposition home or self-care (01) ==
LOC: ER 03:57 → CANBEDREQ 11:45 → SUPCPDRO 20:02
DX: D68.9 Coagulation defect, unspecified (principal); R11.10 Vomiting, unspecified; R04.0 Epistaxis; I11.0 Hypertensive heart disease with heart failure; I50.9 Heart failure, unspecified; I48.91 Unspecified atrial fibrillation; E11.9 Type 2 diabetes mellitus without complications; I25.10 Atherosclerotic heart disease of native coronary artery without angina pectoris; Z86.73 Personal history of transient ischemic attack (TIA), and cerebral infarction without residual deficits; Z79.01 Long term (current) use of anticoagulants
CPT/HCPCS: 36415; 71045; 80053; 83605; 83880; 84145; 84484; 85025; 85610; 86850; 86900; 86901; 87040; 93005; 96374; 99285; C9113

== ENCOUNTER 2021-01-14 07:29 | Emergency (ER) | payer OTHER ==
[~2021-01-14] VITALS: Ht 167.6 cm; Wt 80.0 kg
[~2021-01-14 07:29] MED LIST changes: +DOXY100T2 MT
[2021-01-14] MEDS ORDERED: ALBU18HF2 INH (11:41)
[2021-01-14 12:19] VITALS: BP 131/84
== END 2021-01-14 12:20 | disposition home or self-care (01) ==
LOC: ER 07:37
DX: J06.9 Acute upper respiratory infection, unspecified (principal); R09.81 Nasal congestion; R06.2 Wheezing; I48.91 Unspecified atrial fibrillation; R09.82 Postnasal drip; I87.8 Other specified disorders of veins; I11.0 Hypertensive heart disease with heart failure; I50.9 Heart failure, unspecified; I25.10 Atherosclerotic heart disease of native coronary artery without angina pectoris; E11.9 Type 2 diabetes mellitus without complications; Z86.73 Personal history of transient ischemic attack (TIA), and cerebral infarction without residual deficits
CPT/HCPCS: 71045; 99283

== ENCOUNTER 2021-01-19 03:53 | Inpatient (IN) | payer MEDICAID, OTHER ==
[~2021-01-19] VITALS: Ht 167.6 cm; Wt 108.4 kg
[~2021-01-19 03:53] MED LIST changes: +ALBU18HF2 INH
[2021-01-19] MEDS ORDERED: ONDANSETRON HCL 4MG/2ML INJ IV STA (03:58)
[2021-01-19] MEDS ORDERED: NITROGLYCERIN OINT 1GM/INCH UDPKT TD ONE (04:00)
[2021-01-19] MEDS ORDERED: ASPIRIN 81MG TABLET PO ONE (04:00)
[2021-01-19] MEDS ORDERED: FUROSEMIDE 40MG/4ML VIAL IV ONE (04:00)
[2021-01-19 04:26] LABS: BG BASE EXCESS 2.4 mmol/L (-2.0-2.0); BG CARBOXYHEMOGLOBIN 1.2 % (0.5-1.5); BG DEOXYHEMOGLOBIN 0.6 % (0.0-5.0); BG FRACTION INSPIRED OXYGEN 60; BG HCO3 ACT 23.7 mmol/L (22.0-26.0); BG METHEMOGLOBIN 0.1 % (0.0-1.5); BG OXYGEN SATURATION 99.4 % (92.0-98.5); BG OXYHEMOGLOBIN 98.1 % (94.0-97.0); BG PCO2 27.5 mmHg (35.0-45.0); BG PH 7.553 (7.350-7.450); BG SAMPLE SITE RIGHT RADIAL; BG TOTAL HEMOGLOBIN 13.5 g/dL (12.0-18.0); BG VENT MODE MASK - SIMPLE
[2021-01-19 04:40] LABS: BASOPHILS % 1.3 % (0.0-2.0); EOSINOPHILS % 7.6 % (0.0-5.0); HEMATOCRIT. 43.5 % (42.0-52.0); HEMOGLOBIN. 13.8 g/dL (14.0-18.0); LYMPHOCYTES % 18.4 % (20.0-50.0); MEAN CORPUSCULAR VOLUME 81.7 fL (80.0-94.0); MEAN PLATELET VOLUME 9.1 fl (7.4-10.4); MONOCYTES % 10.6 % (2.0-8.0); NEUTROPHILS % 62.1 % (40.0-76.0); PLATELET 203 x1000/uL (130-400); RED BLOOD CELL COUNT 5.33 mill/uL (4.7-6.1); RED CELL DISTRIBUTION WIDTH 18.5 % (11.6-14.6)
[2021-01-19 04:56] LABS: CHLORIDE 103 mEq/L (98-107)
[2021-01-19] MEDS ORDERED: ENOXAPARIN 40MG/0.4ML SYR SUBCUT SCH (07:30)
[2021-01-19] MEDS ORDERED: ACETAMINOPHEN 325MG TABLET PO PRN ×2 (07:30)
[2021-01-19] MEDS ORDERED: NITROGLYCERIN 0.4MG TABLET SL SL PRN (07:30)
[2021-01-19] MEDS ORDERED: KETOROLAC 15MG/ML VIAL IV PRN (07:30)
[2021-01-19] MEDS ORDERED: GUAIFENESIN 200MG/10ML SUGAR FREE UDC PO PRN (07:30)
[2021-01-19] MEDS ORDERED: MAGNESIUM/ALUMINUM HYDROXIDE/SIMETHICONE 30ML UDC PO PRN (07:30)
[2021-01-19] MEDS ORDERED: ONDANSETRON HCL 4MG/2ML INJ IV PRN (07:30)
[2021-01-19] MEDS ORDERED: FUROSEMIDE 40MG/4ML VIAL IVP SCH (09:00)
[2021-01-19] MEDS ORDERED: ENOXAPARIN 30MG/0.3ML SYR SUBCUT SCH (09:00)
[2021-01-19] MEDS: METOPROLOL TARTRATE 25MG TABLET PO SCH ×2 (09:11→21:51)
[2021-01-19] MEDS: FAMOTIDINE 20MG TABLET PO SCH ×2 (09:11→21:51)
[2021-01-19] MEDS: LISINOPRIL 20MG TABLET PO SCH ×2 (09:11→21:51)
[2021-01-19 09:53] LABS: T4 FREE 1.31 ng/dL (0.76-1.46)
[2021-01-19 10:00] VITALS: BP 147/106
[2021-01-19 10:04] LABS: FOLIC ACID (FOLATE) SERUM 14.8 ng/mL (>5.38)
[2021-01-19 11:22] VITALS: BP 147/106
[2021-01-19] MEDS: ENOXAPARIN 120MG/0.8ML SYR SUBCUT SCH ×2 (13:48→21:51)
[2021-01-19 15:23] VITALS: BP 131/94
[2021-01-19 16:19] LABS: CREATINE KINASE 143 IU/L (39-308)
[2021-01-19] MEDS: SPIRONOLACTONE 25MG TABLET PO SCH (18:06)
[2021-01-19] MEDS: FUROSEMIDE 40MG/4ML VIAL IVP SCH (18:07)
[2021-01-19] MEDS: IPRATROPIUM/ALBUTEROL 0.5-3(2.5)MG/3ML NEB NEB PRN (18:09)
[2021-01-19 20:00] VITALS: BP 133/100
[2021-01-19] MEDS ORDERED: ZOLPIDEM TARTRATE 5MG TABLET PO PRN (22:00)
[2021-01-20 00:30] VITALS: BP 169/111
[2021-01-20] MEDS: CLONIDINE 0.1MG TABLET PO PRN (00:36)
[2021-01-20 01:44] LABS: CREATINE KINASE 141 IU/L (39-308)
[2021-01-20 01:45] LABS: CREATINE KINASE MB FRACTION 2.2 ng/mL (0.5-3.6)
[2021-01-20 04:00] VITALS: BP 139/101
[2021-01-20] MEDS: SPIRONOLACTONE 25MG TABLET PO SCH ×2 (06:27→18:41)
[2021-01-20] MEDS: FUROSEMIDE 40MG/4ML VIAL IVP SCH ×2 (06:28→18:42)
[2021-01-20 08:00] VITALS: BP 135/91
[2021-01-20 08:30] LABS: BASOPHILS % 1.4 % (0.0-2.0); EOSINOPHILS % 4.7 % (0.0-5.0); HEMATOCRIT. 48.2 % (42.0-52.0); HEMOGLOBIN. 15.5 g/dL (14.0-18.0); LYMPHOCYTES % 18.7 % (20.0-50.0); MEAN CORPUSCULAR HEMOGLOBIN 26.3 pg (28.0-32.0); MEAN CORPUSCULAR VOLUME 81.7 fL (80.0-94.0); MEAN PLATELET VOLUME 9.7 fl (7.4-10.4); MONOCYTES % 9.4 % (2.0-8.0); NEUTROPHILS % 65.8 % (40.0-76.0); PLATELET 247 x1000/uL (130-400); RED CELL DISTRIBUTION WIDTH 18.3 % (11.6-14.6)
[2021-01-20 08:35] LABS: CHLORIDE 98 mEq/L (98-107)
[2021-01-20 08:36] LABS: INR 1.2; PROTHROMBIN TIME 12.5 sec (9.6-11.0)
[2021-01-20 08:51] LABS: PHOSPHORUS 3.1 mg/dL (2.5-4.9)
[2021-01-20] MEDS ORDERED: ASPIRIN 325MG EC TABLET PO SCH (09:00)
[2021-01-20] MEDS: ASPIRIN 81MG EC TABLET PO SCH (11:21)
[2021-01-20] MEDS: FAMOTIDINE 20MG TABLET PO SCH ×2 (11:22→21:48)
[2021-01-20] MEDS: DOCUSATE SODIUM 100MG CAPSULE PO PRN (11:22)
[2021-01-20] MEDS: ENOXAPARIN 120MG/0.8ML SYR SUBCUT SCH ×2 (11:23→21:49)
[2021-01-20 12:00] VITALS: BP 132/88
[2021-01-20] MEDS: DILTIAZEM HCL 60MG TABLET PO SCH ×3 (12:11→21:49)
[2021-01-20 16:00] VITALS: BP 127/82
[2021-01-20 20:00] VITALS: BP 133/93
[2021-01-21] VITALS (7 sets, daily range): BP systolic 130–183; BP diastolic 81–113
[2021-01-21] MEDS: SPIRONOLACTONE 25MG TABLET PO SCH ×2 (06:45→17:10)
[2021-01-21] MEDS: FUROSEMIDE 40MG/4ML VIAL IVP SCH (06:45)
[2021-01-21] MEDS: DILTIAZEM HCL 60MG TABLET PO SCH ×3 (06:45→21:23)
[2021-01-21] MEDS: ASPIRIN 81MG EC TABLET PO SCH (08:39)
[2021-01-21] MEDS: FAMOTIDINE 20MG TABLET PO SCH ×2 (08:39→21:23)
[2021-01-21] MEDS: ENOXAPARIN 120MG/0.8ML SYR SUBCUT SCH ×2 (08:39→21:23)
[2021-01-21 11:47] LABS: CHLORIDE 98 mEq/L (98-107)
[2021-01-21] MEDS ORDERED: INFLUENZA VACCINE 05/PF 0.5 ML SYRINGE IM ONE (14:30)
[2021-01-21] MEDS: DOCUSATE SODIUM 100MG CAPSULE PO PRN (17:10)
[2021-01-21] MEDS: CLONIDINE 0.1MG TABLET PO PRN (21:23)
[2021-01-21] MEDS: IPRATROPIUM/ALBUTEROL 0.5-3(2.5)MG/3ML NEB NEB PRN (22:35)
[2021-01-22 00:25] VITALS: BP 149/99
[2021-01-22 04:00] VITALS: BP 152/101
[2021-01-22] MEDS: DILTIAZEM HCL 60MG TABLET PO SCH (05:29)
[2021-01-22] MEDS: SPIRONOLACTONE 25MG TABLET PO SCH (05:29)
[2021-01-22] MEDS: CLONIDINE 0.1MG TABLET PO PRN (05:29)
[2021-01-22 08:00] VITALS: BP 138/97
[2021-01-22] MEDS ORDERED: FUROSEMIDE 40MG TABLET PO SCH (09:00)
[2021-01-22] MEDS: FAMOTIDINE 20MG TABLET PO SCH (09:13)
[2021-01-22] MEDS: ASPIRIN 81MG EC TABLET PO SCH (09:13)
[2021-01-22] MEDS: ENOXAPARIN 120MG/0.8ML SYR SUBCUT SCH (09:14)
[2021-01-22] MEDS ORDERED: FURO-151 MT ×2 (09:49→09:50)
[2021-01-22] MEDS ORDERED: SPIR25TA MT (09:51)
[2021-01-22] MEDS ORDERED: SPIR25TA PO (09:52)
[2021-01-22] MEDS ORDERED: FAMO-135 PO (09:53)
== END 2021-01-22 10:30 | disposition home or self-care (01) | DRG 194 ==
LOC: ER 03:53 → MICUSO 05:17 → EDBEDREQTM 05:19 → EDBEDREQ 05:19 → 6WST 09:33
PROVIDERS: ADMIT Internal Medicine; ATTEND Internal Medicine
DX: I11.0 Hypertensive heart disease with heart failure (principal); J96.01 Acute respiratory failure with hypoxia; I82.411 Acute embolism and thrombosis of right femoral vein; E44.1 Mild protein-calorie malnutrition; I16.1 Hypertensive emergency; E83.51 Hypocalcemia; I50.43 Acute on chronic combined systolic (congestive) and diastolic (congestive) heart failure; R73.03 Prediabetes; J06.9 Acute upper respiratory infection, unspecified; I25.10 Atherosclerotic heart disease of native coronary artery without angina pectoris; I48.0 Paroxysmal atrial fibrillation; Z82.49 Family history of ischemic heart disease and other diseases of the circulatory system; Z86.73 Personal history of transient ischemic attack (TIA), and cerebral infarction without residual deficits; Z79.899 Other long term (current) drug therapy; Z68.38 Body mass index [BMI] 38.0-38.9, adult
CPT/HCPCS: 36415; 36600; 71045; 80048; 80053; 80061; 82375; 82550; 82553; 82607; 82746; 82805; 83036; 83540; 83550; 83605; 83735; 83880; 84100; 84439; 84443; 84484; 85025; 90686; 93005; 93306; 93970; 94640; 99291; J1650; J1940; J2405

== ENCOUNTER 2021-09-13 21:47 | Inpatient (IN) | payer MEDICAID ==
[~2021-09-13] VITALS: Ht 167.6 cm; Wt 95.7 kg
[~2021-09-13 21:47] MED LIST changes: -ATOR10TA MT; +ATOR20TA65 MT; -CARV25TA47 MT; +DIGO125T80 MT; +FAMO-135 PO; +FURO40TA5 PO; +HYDR-4135 PO; +LEVO50TA8 MT; +SPIR25TA PO
[2021-09-13] MEDS ORDERED: KETOROLAC 30MG/ML VIAL IV STA (22:03)
[2021-09-13 22:33] LABS: BASOPHILS % 0.7 % (0.0-2.0); EOSINOPHILS % 3.4 % (0.0-5.0); HEMATOCRIT. 46.6 % (42.0-52.0); HEMOGLOBIN. 15.8 g/dL (14.0-18.0); LYMPHOCYTES % 16.8 % (20.0-50.0); MEAN CORPUSCULAR HEMOGLOBIN 30.5 pg (28.0-32.0); MEAN CORPUSCULAR VOLUME 89.9 fL (80.0-94.0); MEAN PLATELET VOLUME 9.1 fl (7.4-10.4); MONOCYTES % 11.2 % (2.0-8.0); NEUTROPHILS % 67.9 % (40.0-76.0); PLATELET 227 x1000/uL (130-400); RED BLOOD CELL COUNT 5.19 mill/uL (4.7-6.1); RED CELL DISTRIBUTION WIDTH 15.8 % (11.6-14.6)
[2021-09-13 22:38] LABS: CHLORIDE 97 mEq/L (98-107)
[2021-09-13 22:48] LABS: ETHANOL BLOOD < 10 mg/dL
[2021-09-14] MEDS ORDERED: DEXTROSE 50% WATER 50ML SYRINGE IV ONE (02:00)
[2021-09-14] MEDS ORDERED: SODIUM BICARBONATE 8.4% 1 MEQ/ML 50ML SYR IV SCH (02:00)
[2021-09-14] MEDS ORDERED: ALBUTEROL (0.083%) 2.5MG/3ML NEB HHN SCH (02:00)
[2021-09-14] MEDS ORDERED: CALCIUM CHLORIDE 1GM/10ML SYR IV ONE (02:00)
[2021-09-14] MEDS ORDERED: INSULIN REGULAR (HUMULIN R) 300UNITS/3ML VIAL IV SCH (02:00)
[2021-09-14] MEDS ORDERED: CALCIUM CHLORIDE 1GM/10ML SYR IV SCH (03:30)
[2021-09-14] MEDS ORDERED: DEXTROSE 50% WATER 50ML SYRINGE IV SCH (03:30)
[2021-09-14] MEDS ORDERED: MORPHINE SULFATE 4 MG/ML CPJ (NOT FOR IM USE) IV SCH (04:30)
[2021-09-14] MEDS ORDERED: ALBUTEROL (0.5%) 2.5MG/0.5ML NEB HHN ONE (05:43)
[2021-09-14] MEDS ORDERED: CLONIDINE 0.1MG TABLET PO PRN (07:15)
[2021-09-14] MEDS ORDERED: NITROGLYCERIN 0.4MG TABLET SL SL PRN (07:15)
[2021-09-14] MEDS ORDERED: GUAIFENESIN 200MG/10ML SUGAR FREE UDC PO PRN (07:15)
[2021-09-14] MEDS ORDERED: MAGNESIUM/ALUMINUM HYDROXIDE/SIMETHICONE 30ML UDC PO PRN (07:15)
[2021-09-14] MEDS ORDERED: DOCUSATE SODIUM 100MG CAPSULE PO PRN (07:15)
[2021-09-14] MEDS ORDERED: ONDANSETRON HCL 4MG/2ML INJ IV PRN (07:15)
[2021-09-14] MEDS ORDERED: ACETAMINOPHEN 325MG TABLET PO PRN ×2 (07:15)
[2021-09-14] MEDS ORDERED: ZOLPIDEM TARTRATE 5MG TABLET PO PRN (07:15)
[2021-09-14] MEDS ORDERED: IPRATROPIUM/ALBUTEROL 0.5-3(2.5)MG/3ML NEB NEB PRN (07:15)
[2021-09-14] MEDS ORDERED: SODIUM POLYSTYRENE SULFONATE 15 G/60 ML BOT PO NR (08:00)
[2021-09-14 08:50] LABS: ETHANOL BLOOD < 10 mg/dL; HDL CHOLESTEROL 35 mg/dL (40-59); LDL CHOLESTEROL 64 mg/dL (5-100); TOTAL IRON BINDING CAPACITY 453 ug/dL (250-450)
[2021-09-14 09:17] LABS: FOLIC ACID (FOLATE) SERUM >20 ng/mL ng/mL (>5.38); VITAMIN B12 SERUM 498 pg/mL (211-911)
[2021-09-14 09:20] VITALS: BP 151/101
[2021-09-14 09:43] VITALS: BP 151/101
[2021-09-14] MEDS: APIXABAN 5 MG TABLET PO SCH ×2 (10:53→17:09)
[2021-09-14] MEDS: SUCRALFATE 1 G/10 ML UDC PO SCH ×4 (10:53→21:17)
[2021-09-14] MEDS: LACTULOSE 20G/30ML UDC PO SCH ×3 (10:53→21:17)
[2021-09-14] MEDS: FAMOTIDINE 20MG TABLET PO SCH (10:53)
[2021-09-14] MEDS: ASPIRIN 81MG EC TABLET PO SCH (10:53)
[2021-09-14 12:00] VITALS: BP 145/92
[2021-09-14 15:56] LABS: BASOPHILS % 0.7 % (0.0-2.0); EOSINOPHILS % 2.3 % (0.0-5.0); HEMATOCRIT. 47.3 % (42.0-52.0); HEMOGLOBIN. 15.9 g/dL (14.0-18.0); LYMPHOCYTES % 14.3 % (20.0-50.0); MEAN CORPUSCULAR HEMOGLOBIN 30.4 pg (28.0-32.0); MEAN CORPUSCULAR VOLUME 90.5 fL (80.0-94.0); MEAN PLATELET VOLUME 9.5 fl (7.4-10.4); MONOCYTES % 9.6 % (2.0-8.0); NEUTROPHILS % 73.1 % (40.0-76.0); PLATELET 229 x1000/uL (130-400); RED BLOOD CELL COUNT 5.23 mill/uL (4.7-6.1); RED CELL DISTRIBUTION WIDTH 15.9 % (11.6-14.6)
[2021-09-14 16:00] VITALS: BP 149/93
[2021-09-14 16:32] LABS: CREATINE KINASE MB FRACTION 2.7 ng/mL (0.5-3.6)
[2021-09-14 20:00] VITALS: BP 113/87
[2021-09-14 23:23] LABS: CREATINE KINASE MB FRACTION 3.3 ng/mL (0.5-3.6)
[2021-09-15] VITALS: BP 116/86
[2021-09-15 01:49] LABS: CLARITY URINE CLEAR (CLEAR); COLOR URINE YELLOW (YELLOW); KETONES URINE NEGATIVE (NEGATIVE); LEUKOCYTE ESTERASE URINE NEGATIVE (NEGATIVE); NITRITE URINE NEGATIVE (NEGATIVE); OCCULT BLOOD URINE NEGATIVE (NEGATIVE); PROTEIN URINE NEGATIVE (NEGATIVE); SPECIFIC GRAVITY URINE 1.011 (1.005-1.030); UROBILINOGEN URINE 0.2 E.U./dL (0.2-1.0)
[2021-09-15 02:04] LABS: *AMPHETAMINES SCREEN URINE NEGATIVE (NEGATIVE); *BARBITURATES SCREEN URINE NEGATIVE (NEGATIVE); *BENZODIAZEPINES SCREEN URINE NEGATIVE (NEGATIVE); *COCAINE SCREEN URINE NEGATIVE (NEGATIVE); CANNABINOID URINE SCREEN NEGATIVE (NEGATIVE); METHADONE URINE SCREEN NEGATIVE (NEGATIVE); OPIATES URINE SCREEN PRESUMTIVE POSITIVE (NEGATIVE); PHENCYCLIDINE URINE SCREEN NEGATIVE (NEGATIVE)
[2021-09-15 04:00] VITALS: BP 126/84
[2021-09-15 06:33] LABS: BASOPHILS % 1.3 % (0.0-2.0); EOSINOPHILS % 4.6 % (0.0-5.0); HEMATOCRIT. 46.5 % (42.0-52.0); HEMOGLOBIN. 15.6 g/dL (14.0-18.0); LYMPHOCYTES % 21.2 % (20.0-50.0); MEAN CORPUSCULAR HEMOGLOBIN 30.2 pg (28.0-32.0); MEAN PLATELET VOLUME 9.7 fl (7.4-10.4); MONOCYTES % 13.3 % (2.0-8.0); NEUTROPHILS % 59.6 % (40.0-76.0); PLATELET 211 x1000/uL (130-400); RED BLOOD CELL COUNT 5.16 mill/uL (4.7-6.1); RED CELL DISTRIBUTION WIDTH 15.6 % (11.6-14.6)
[2021-09-15] MEDS: LACTULOSE 20G/30ML UDC PO SCH ×3 (06:37→20:51)
[2021-09-15] MEDS: APIXABAN 5 MG TABLET PO SCH ×2 (06:37→18:08)
[2021-09-15] MEDS ORDERED: CARV12.545 PO (06:42)
[2021-09-15] MEDS: SUCRALFATE 1 G/10 ML UDC PO SCH ×4 (06:46→20:51)
[2021-09-15 06:48] LABS: CHLORIDE 99 mEq/L (98-107)
[2021-09-15 07:00] LABS: PHOSPHORUS 3.6 mg/dL (2.5-4.9)
[2021-09-15 08:00] VITALS: BP 124/84
[2021-09-15] MEDS: FAMOTIDINE 20MG TABLET PO SCH (08:58)
[2021-09-15] MEDS: ASPIRIN 81MG EC TABLET PO SCH (08:59)
[2021-09-15 11:55] VITALS: BP 133/90
[2021-09-15 16:00] VITALS: BP 128/89
[2021-09-15 20:00] VITALS: BP 128/99
[2021-09-15] MEDS: CARVEDILOL 12.5MG TABLET PO SCH (20:51)
[2021-09-16] VITALS: BP 118/84
[2021-09-16 04:00] VITALS: BP 126/94
[2021-09-16 05:31] LABS: BASOPHILS % 1.2 % (0.0-2.0); HEMATOCRIT. 46.1 % (42.0-52.0); HEMOGLOBIN. 15.5 g/dL (14.0-18.0); LYMPHOCYTES % 20.2 % (20.0-50.0); MEAN CORPUSCULAR VOLUME 89.4 fL (80.0-94.0); MEAN PLATELET VOLUME 9.3 fl (7.4-10.4); MONOCYTES % 11.8 % (2.0-8.0); NEUTROPHILS % 61.8 % (40.0-76.0); PLATELET 192 x1000/uL (130-400); RED BLOOD CELL COUNT 5.16 mill/uL (4.7-6.1); RED CELL DISTRIBUTION WIDTH 15.9 % (11.6-14.6)
[2021-09-16] MEDS: SUCRALFATE 1 G/10 ML UDC PO SCH (06:40)
[2021-09-16] MEDS: APIXABAN 5 MG TABLET PO SCH (06:40)
[2021-09-16 08:11] VITALS: BP 128/96
[2021-09-16] MEDS: FAMOTIDINE 20MG TABLET PO SCH (08:47)
[2021-09-16] MEDS: CARVEDILOL 12.5MG TABLET PO SCH (08:47)
[2021-09-16] MEDS: ASPIRIN 81MG EC TABLET PO SCH (08:47)
[2021-09-16 10:20] VITALS: BP 128/96
== END 2021-09-16 12:19 | disposition home or self-care (01) | DRG 241 ==
LOC: ER 21:47 → 6WST 09-14 03:20 → ENRESERV 09-14 08:12
PROVIDERS: ADMIT Internal Medicine; ATTEND Internal Medicine
DX: K29.70 Gastritis, unspecified, without bleeding (principal); N17.0 Acute kidney failure with tubular necrosis; I47.2 Ventricular tachycardia; I50.9 Heart failure, unspecified; K59.00 Constipation, unspecified; I13.0 Hypertensive heart and chronic kidney disease with heart failure and stage 1 through stage 4 chronic kidney disease, or unspecified chronic kidney disease; E83.51 Hypocalcemia; E87.1 Hypo-osmolality and hyponatremia; E87.5 Hyperkalemia; N18.9 Chronic kidney disease, unspecified; E78.5 Hyperlipidemia, unspecified; I25.2 Old myocardial infarction; I48.20 Chronic atrial fibrillation, unspecified; E11.22 Type 2 diabetes mellitus with diabetic chronic kidney disease; I25.10 Atherosclerotic heart disease of native coronary artery without angina pectoris; I49.5 Sick sinus syndrome; E78.00 Pure hypercholesterolemia, unspecified; J44.9 Chronic obstructive pulmonary disease, unspecified; I25.5 Ischemic cardiomyopathy; I82.501 Chronic embolism and thrombosis of unspecified deep veins of right lower extremity; K43.9 Ventral hernia without obstruction or gangrene; Z91.19 Patient's noncompliance with other medical treatment and regimen; Z86.73 Personal history of transient ischemic attack (TIA), and cerebral infarction without residual deficits; Z95.810 Presence of automatic (implantable) cardiac defibrillator
CPT/HCPCS: 36415; 71045; 74176; 76770; 80048; 80053; 80061; 80305; 80320; 81003; 82270; 82550; 82553; 82607; 82746; 82962; 83036; 83540; 83550; 83735; 84100; 84443; 84484; 85025; 93005; 93306; 93970; 94640; 99285; J1815; J2270; J3490; G0480